=== PATIENT | male | born 1990 | race African-American/Black ===

== ENCOUNTER 2017-07-19 18:51 | Emergency (ER) | payer OTHER ==
[~2017-07-19] VITALS: Ht 182.9 cm; Wt 73.0 kg
[~2017-07-19 18:51] MED LIST: BENADRYL25 MG ORAL; PROZAC10 MG ORAL; QUETIAPINE FUMA25 MG ORAL
[2017-07-19] MEDS ORDERED: ALBUTEROL SULF8.5 GM INH (18:52)
[2017-07-19] MEDS ORDERED: LORazepam 1mg tab ORAL ONE (19:00)
[2017-07-19 19:05] VITALS: BP_SYST 0; BP_SYST 138; BP_DIAS 0; BP_DIAS 86
--- NOTE | 2017-07-19 19:08 | Emergency Room Report ---
History of Present Illness General Chief Complaint: Medical Clearance Source: Significant Other, EMS Present Illness HPI 27YOM BIBEMS and [employer] for medical clearance Patient was running from [employer] with [employer] and air pursuit When captured, patient c/o "asthma." Also endorses history of "psych" - took prozac this morning Take seroquel sometimes at night Denies other medical problems Now denying chest pain, SOB, abd pain, fever/chills "Just give me some water." Smoked MJ today Allergies: Coded Allergies: No Known Allergies (Unverified , 07/19/17) Patient History Past Medical History: psych hx Past Surgical History: none Pertinent Family History: none Social History: Reports: smoking, drug use, Denies: alcohol use Immunizations: UTD Reviewed Nursing Documentation: PMH: Agreed, PSxH: Agreed Nursing Documentation-PMH Past Medical History: No History, Except For Hx Asthma: Yes History Of Psychiatric Problem: Yes - schizophrenia Review of Systems All Other Systems: negative except mentioned in HPI Physical Exam Vital Signs Date Time Temp Pulse Resp B/P (MAP) Pulse Ox O2 Delivery O2 Flow Rate FiO2 07/19/17 18:40 97.5 111 20 138/86 97 Room Air Sp02 EP Interpretation: reviewed, normal General Appearance: normal inspection, well appearing, no apparent distress, alert Head: atraumatic ENT: normal ENT inspection, hearing grossly normal, normal voice Neck: normal inspection, full range of motion, supple, no bony tend Respiratory: normal inspection, lungs clear, normal breath sounds, no respiratory distress, no retraction, no wheezing Cardiovascular #1: regular rate, rhythm, no edema Gastrointestinal: normal inspection, normal bowel sounds, non tender, soft, no guarding, no hernia Genitourinary: no CVA tenderness Musculoskeletal: normal inspection, back normal, normal range of motion, Flex' s Sign negative Neurologic: normal inspection, alert, oriented x3, responsive, 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 Afebrile Slightly anxious appearing - I offered PO ativan but patient refused Was given water PO as he asked for Medically cleared for arraignment with [employer] DC Last Vital Signs Date Time Temp Pulse Resp B/P (MAP) Pulse Ox O2 Delivery O2 Flow Rate FiO2 07/19/17 18:40 97.5 111 20 138/86 97 Room Air Status: improved Disposition: D/C TO LAW ENFORCEMENT IN [facility] Condition: Improved Departure Forms: [facility] Clearance Additional Instructions: MEDICALLY CLEARED FOR INCARCERATION NORRIS ARVIZU M.D. Jul 19, 2017 19:08
== END 2017-07-19 19:15 ==
LOC: EDBD 18:51 → EMR 19:15
DX: Z02.89 Encounter for other administrative examinations (principal); F41.9 Anxiety disorder, unspecified; J45.909 Unspecified asthma, uncomplicated; F20.9 Schizophrenia, unspecified
CPT/HCPCS: 99283